=== PATIENT | female | born 1930 | race Two or more races ===

== ENCOUNTER 2016-05-26 08:23 | Outpatient (CLI) | payer OTHER ==
[2016-05-26 08:36] LABS: BILIRUBIN,URINE Negative (NEGATIVE); KETONES,URINE Negative (NEGATIVE); LEUKOCYTE ESTERASE ,URINE 3+ (NEGATIVE); NITRITE,URINE Positive (NEGATIVE); PH,URINE 6.5 (5-9); PROTEIN,URINE Negative (NEGATIVE); URINE, BLOOD 1+ (NEGATIVE)
[2016-05-26 09:10] LABS: ADD URINE MICROSCOPIC YES
== END 2016-05-26 08:24 | disposition home or self-care (01) ==
LOC: LAB 08:23
PROVIDERS: ATTEND Family Medicine
DX: R41.0 Disorientation, unspecified (principal); R30.0 Dysuria
CPT/HCPCS: 81001; 87086; 87186

== ENCOUNTER 2016-11-10 02:15 | Outpatient (CLI) | END 2016-11-10 02:16 | disposition short-term general hospital (02) | LOC: AMBL 02:15 | PROVIDERS: ATTEND Internal Medicine Geriatric Medicine | DX: R05 Cough (principal); R09.89 Other specified symptoms and signs involving the circulatory and respiratory systems; G30.9 Alzheimer's disease, unspecified; F02.80 Dementia in other diseases classified elsewhere, unspecified severity, without behavioral disturbance, psychotic disturbance, mood disturbance, and anxiety ==